=== PATIENT | female | born 1990 | race African-American/Black ===

== ENCOUNTER 2016-11-19 19:42 | Emergency (ER) | payer SELFPAY ==
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
== END 2016-11-19 20:40 | disposition home or self-care (01) ==
LOC: ER 19:42
DX: S09.8XXA Other specified injuries of head, initial encounter (principal); V89.2XXA Person injured in unspecified motor-vehicle accident, traffic, initial encounter; Y93.89 Activity, other specified; Y92.488 Other paved roadways as the place of occurrence of the external cause; Y99.8 Other external cause status
CPT/HCPCS: Z7502